=== PATIENT | female | born 1955 | race Caucasian/White ===

== ENCOUNTER → 2017-05-02 | Outpatient (CLI) | payer OTHER ==
[~2017-05-02] MED LIST: CIPRO500 MG PO; FLAGYL500 MG PO; NORCO 5/3251 TABLET PO
== END | disposition home or self-care (01) ==
LOC: CDC 14:05
DX: Z01.810 Encounter for preprocedural cardiovascular examination (principal); L72.9 Follicular cyst of the skin and subcutaneous tissue, unspecified
CPT/HCPCS: 93000

== ENCOUNTER 2017-05-15 08:03 | Day surgery (SDC) | payer OTHER ==
[~2017-05-15] VITALS: Ht 160 cm; Wt 84.3 kg
[~2017-05-15 08:03] MED LIST changes: +BENICAR20 MG PO; +BIOTIN 5000MCG PO; +FLONASE16 G1 BOTH NARES; +LO-DOSE ASPIRIN81 M1 PO; +PROTONIX40 MG PO; +SEROQUEL100 MG PO; +TOPROL XL50 MG PO; +VENTOLIN HFA18 GM IH; +VITAMIN D-32000 UNI2 PO
[2017-05-15 08:33] VITALS: BP 115/71
[2017-05-15 12:03] VITALS: BP 120/60
== END 2017-05-15 12:44 | disposition home or self-care (01) ==
LOC: SDC 08:03
PROC: 0JB00ZZ Excision of Scalp Subcutaneous Tissue and Fascia, Open Approach (ICD-10-PCS; principal; 2017-05-15)
DX: L72.11 Pilar cyst (principal); J45.909 Unspecified asthma, uncomplicated; I10 Essential (primary) hypertension; K21.9 Gastro-esophageal reflux disease without esophagitis; F41.8 Other specified anxiety disorders; E78.00 Pure hypercholesterolemia, unspecified; Z88.2 Allergy status to sulfonamides; Z79.82 Long term (current) use of aspirin; Z87.891 Personal history of nicotine dependence; Z88.0 Allergy status to penicillin
CPT/HCPCS: 88304; J0690; J2250; J2405; J3010